=== PATIENT | female | born 1940 | race Hispanic/Latino ===

== ENCOUNTER → 2020-12-14 | Outpatient (CLI) | payer MEDICARE ==
[~2020-12-14] VITALS: Ht 147.3 cm; Wt 81.6 kg
[~2020-12-14] MED LIST: CALC-190 PO; ESCI10TA PO; LEVO137T24 PO; LISI20TA24 PO; REGADENOSON 0.4 MG/5 ML PF SYG IVP SCH; ROSU10TA22 PO; ZOLP5TAB8 PO
== END | disposition home or self-care (01) ==
LOC: SHCH 08:17
PROVIDERS: ATTEND Internal Medicine Cardiovascular Disease
DX: R94.31 Abnormal electrocardiogram [ECG] [EKG] (principal); I73.9 Peripheral vascular disease, unspecified; I10 Essential (primary) hypertension; E78.5 Hyperlipidemia, unspecified; E66.9 Obesity, unspecified; E03.9 Hypothyroidism, unspecified; R06.02 Shortness of breath
CPT/HCPCS: 78452; 93017; 96374; A9500 ×2

== ENCOUNTER → 2022-06-07 | Outpatient (CLI) | payer MEDICARE ==
[~2022-06-07] MED LIST changes: +ASPI-1443 PO; +ATOR20TA65 PO; +CALC-1038 PO; -CALC-190 PO; -ESCI10TA PO; +IOHEXOL-300 50 ML VIAL IV ONE; +ISOS30TA92 PO; -REGADENOSON 0.4 MG/5 ML PF SYG IVP SCH; -ROSU10TA22 PO; +VITAMIN D PO
== END | disposition home or self-care (01) ==
LOC: RAH 09:12
PROVIDERS: ATTEND Internal Medicine Cardiovascular Disease
DX: I25.810 Atherosclerosis of coronary artery bypass graft(s) without angina pectoris (principal); R91.8 Other nonspecific abnormal finding of lung field; I10 Essential (primary) hypertension; M47.815 Spondylosis without myelopathy or radiculopathy, thoracolumbar region; K44.9 Diaphragmatic hernia without obstruction or gangrene; I25.10 Atherosclerotic heart disease of native coronary artery without angina pectoris; Z98.890 Other specified postprocedural states
CPT/HCPCS: 71270; Q9967

== ENCOUNTER → 2022-06-23 | Outpatient (CLI) | payer MEDICARE ==
[~2022-06-23] MED LIST changes: -IOHEXOL-300 50 ML VIAL IV ONE
[2022-06-23 12:41] LABS: CHOLESTEROL 168 mg/dL (<200); HDL CHOLESTEROL 43 mg/dL (35-85); LDL DIRECT 115 mg/dL (0-99); TRIGLYCERIDES 142 mg/dL (30-200)
== END | disposition home or self-care (01) ==
LOC: LAB 11:18
PROVIDERS: ATTEND Internal Medicine Cardiovascular Disease
DX: I10 Essential (primary) hypertension (principal); E78.5 Hyperlipidemia, unspecified
CPT/HCPCS: 36415; 80061

== ENCOUNTER → 2022-12-01 | Outpatient (CLI) | payer MEDICARE | END | disposition home or self-care (01) | LOC: RAH 14:23 | PROVIDERS: ATTEND Family Medicine | DX: Z12.31 Encounter for screening mammogram for malignant neoplasm of breast (principal); R92.1 Mammographic calcification found on diagnostic imaging of breast | CPT/HCPCS: 77067 ==

== ENCOUNTER → 2024-06-17 | Outpatient (CLI) | payer MEDICARE ==
[~2024-06-17] MED LIST changes: +IOHEXOL 350 MG/ML 100ML INFUS..BTL IV ONE; +IOHEXOL-350 75 ML VIAL IV ONE
--- NOTE | 2024-06-17 09:47 | HMCIMG ---
CT CHEST W/WO CONTRAST HISTORY: Atherosclerotic heart disease COMPARISON: 06/07/2022 TECHNIQUE: Multiple sequential axial images of the chest were obtained from the thoracic inlet through upper abdomen. Patient was given 75 cc of Omnipaque through intravenous route. FINDINGS: There is no evidence of pulmonary nodule or parenchymal disease. No pleural effusion or pericardial effusion is seen. There is no evidence of pneumothorax. There are normal size mediastinal and hilar lymph nodes. The heart is not enlarged. Coronary arterial calcifications are seen. A small hiatal hernia is seen. Poststernotomy changes are seen. Degenerative changes of the thoracolumbar spine are present. There is no evidence of adrenal nodule. Dystrophic calcification is seen in the right hepatic lobe. There may be bilateral renal cysts with bilateral renal cortical scarring. Largest cyst is seen in the right kidney measuring 2.3 cm. There is diverticulosis. IMPRESSION: 1. No evidence of pulmonary nodule or effusion is seen. CT was performed with one or more following dose reduction techniques: automated exposure control, adjustment of the mA and kv according to patient's size, or use of a iterative reconstruction technique.
== END | disposition home or self-care (01) ==
LOC: RAH 08:23
PROVIDERS: ATTEND Internal Medicine Cardiovascular Disease
DX: I25.10 Atherosclerotic heart disease of native coronary artery without angina pectoris (principal); K44.9 Diaphragmatic hernia without obstruction or gangrene; M47.815 Spondylosis without myelopathy or radiculopathy, thoracolumbar region
CPT/HCPCS: 71270; Q9967

== ENCOUNTER → 2025-06-08 | Outpatient (CLI) | payer MEDICARE ==
[~2025-06-08] MED LIST changes: -IOHEXOL 350 MG/ML 100ML INFUS..BTL IV ONE; -IOHEXOL-350 75 ML VIAL IV ONE; +ZOLP5TAB16 PO; -ZOLP5TAB8 PO
--- NOTE | 2025-06-08 23:13 | HMCIMG ---
EXAM: ULTRASOUND RENAL Technique: Real-time transabdominal ultrasound of the kidneys and urinary bladder in longitudinal and transverse planes with grayscale imaging and color Doppler where indicated. Contrast: No intravenous contrast administered. Clinical Information: History of acquired renal cysts; insurance note per patient comments. Findings: Right kidney: Measures 9.4 ??? 4.6 ??? 5.7 cm. Multiple cysts are present; the largest two measure 2.6 ??? 2.9 ??? 3.0 cm and 2.9 ??? 2.4 ??? 3.1 cm. No perinephric collection identified. Left kidney: Measures 9.9 ??? 3.4 ??? 5.3 cm. Multiple cysts are present; the largest simple cortical cyst measures 1.8 ??? 2.1 ??? 1.9 cm. A parapelvic cyst measures 2.7 ??? 2.0 ??? 3.6 cm. No perinephric collection identified. Mild left side hydronephrosis. Urinary bladder: Partially distended; wall thickness measures 4 mm. Ureters/collecting systems: No dilatation is visualized on the images provided. Impression: * Bilateral renal cysts, including a left parapelvic cyst (2.7 ??? 2.0 ??? 3.6 cm) and multiple cortical cysts bilaterally; largest right-sided cysts 2.6 ??? 2.9 ??? 3.0 cm and 2.9 ??? 2.4 ??? 3.1 cm; largest left cortical cyst 1.8 ??? 2.1 ??? 1.9 cm. * Mild left side hydronephrosis. * Urinary bladder partially distended with measured wall thickness of 4 mm. /[place]
== END | disposition home or self-care (01) ==
LOC: RAH 10:44
PROVIDERS: ATTEND Internal Medicine Nephrology
DX: N28.1 Cyst of kidney, acquired (principal); N13.30 Unspecified hydronephrosis; N32.89 Other specified disorders of bladder
CPT/HCPCS: 76770

== ENCOUNTER → 2025-06-20 | Outpatient (CLI) | payer MEDICARE ==
--- NOTE | 2025-06-21 00:01 | HMCIMG ---
EXAM: CT Abdomen and Pelvis without Intravenous Contrast CLINICAL HISTORY: Unspecified hydronephrosis. TECHNIQUE: Axial computed tomography images of the abdomen and pelvis without intravenous contrast. Dose reduction technique was used including one or more of the following: automated exposure control, adjustment of mA and kV according to patient size, and/or iterative reconstruction. Total exam DLP is 586. CONTRAST: Without; COMPARISON: Prior renal sonogram dated 06/08/2025. FINDINGS: LUNG BASES: Scattered fibroatelectatic changes are present in the right middle lobe, lingula. No basilar airspace consolidation or pleural effusion. LIVER: There is a 1.4 x 1.5 cm sized calcific nodule in the segment NADIRA of the liver. GALLBLADDER AND BILE DUCTS: The gallbladder is surgically absent. No ductal dilation. PANCREAS: Unremarkable. SPLEEN: Unremarkable. ADRENAL GLANDS: Unremarkable. KIDNEYS, URETERS, AND BLADDER: There are bilateral renal cysts, the largest in the right renal superior pole measuring 3.5 cm. The bilateral renal cysts do not demonstrate any calcification or fat density areas. Per consensus, no follow-up is needed for simple Bosniak type 1 renal cysts, unless the patient has a malignancy history or risk factors. 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 Left sided hydronephrosis which was redemonstrated, compared with the prior renal sonogram is likely to be due to ureteropelvic junction stricture as elucidated better on the present CT scan. The renal cysts are redemonstrated compared with the prior sonography. No nephrolithiasis. No ureteral or bladder calculi. STOMACH AND BOWEL: There is a diverticulum arising from the medial wall of the second part of the duodenum measuring 2.5 cm. There are colonic diverticula, without diverticulitis. A moderate amount of fecal material is present in the colon. No obstruction. No wall thickening. APPENDIX: The appendix is unremarkable, series 2, image 33/95. PERITONEUM: No free fluid. No free air. LYMPH NODES: No lymphadenopathy. REPRODUCTIVE: The uterus is surgically absent. The adnexa are unremarkable. VASCULATURE: The abdominal aorta demonstrates atheromatous calcification without aneurysm or dissection. ABDOMINAL WALL AND SOFT TISSUES: Median sternotomy status. There are coronary arterial calcifications. Mitral and aortic valve annulus calcifications are present. BONES: There are spondylotic changes in the lumbar spine. Minimal dextroscoliosis of the thoracolumbar curvature is present. No fracture or suspicious osseous abnormality. IMPRESSION: Compared with the prior renal sonogram compared with the prior renal sonogram dated June 08, 2025,1. 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 2. Bilateral renal cysts, the largest in the right renal superior pole measuring 3.5 cm, without calcification or fat density areas. 3. Colonic diverticula without evidence of diverticulitis. /[place]
== END | disposition home or self-care (01) ==
LOC: RAH 09:46
PROVIDERS: ATTEND Internal Medicine Nephrology
DX: N28.1 Cyst of kidney, acquired (principal); K57.30 Diverticulosis of large intestine without perforation or abscess without bleeding; M47.816 Spondylosis without myelopathy or radiculopathy, lumbar region; M41.85 Other forms of scoliosis, thoracolumbar region; I25.10 Atherosclerotic heart disease of native coronary artery without angina pectoris; N13.30 Unspecified hydronephrosis; I08.0 Rheumatic disorders of both mitral and aortic valves; J98.11 Atelectasis; Z90.710 Acquired absence of both cervix and uterus; Z98.890 Other specified postprocedural states; Z90.49 Acquired absence of other specified parts of digestive tract
CPT/HCPCS: 74176

== ENCOUNTER → 2025-07-25 | Outpatient (CLI) | payer MEDICARE ==
[~2025-07-25] MED LIST changes: -ASPI-1443 PO; -ATOR20TA65 PO; -CALC-1038 PO; +GADOTERATE MEGLUMINE 10 MMOL/20 ML VIAL IV ONE; -ISOS30TA92 PO; -LEVO137T24 PO; -LISI20TA24 PO; -VITAMIN D PO; -ZOLP5TAB16 PO
--- NOTE | 2025-07-26 02:41 | HMCIMG ---
EXAM: ABDOMEN WITH AND WITHOUT IV CONTRAST CLINICAL HISTORY: Abnormal findings on diagnostic imaging of the liver and biliary tract. TECHNIQUE: Multiplanar and multisequence MR images of the abdomen were obtained before and after IV contrast administration. CONTRAST: Intravenous Clariscan 5 mL COMPARISON: CT abdomen and pelvis without contrast dated 06/20/2025. FINDINGS: LOWER CHEST: No pleural effusion. Median sternotomy wires are present. LIVER: Non-enhancing nodular lesion in segment NADIRA (series 1005, image 42/112), hyperintense on T1 and T2 without diffusion restriction. This corresponds to a calcific nodule noted on the prior CT and is likely a calcified granuloma. No fatty infiltration. GALLBLADDER AND BILIARY TREE: Gallbladder is surgically absent. Common bile duct measures 4 mm with smooth distal tapering. No intra or extrahepatic biliary ductal dilation. PANCREAS: Non-enlarged. No mass or pancreatic duct dilation. No pancreatic ductal dilatation or calculi. SPLEEN: Spleen measures 9.4 cm. Again seen is a splenule measuring 0.7 cm. ADRENAL GLANDS: Non-enlarged, no adrenal gland nodule. KIDNEYS: Normal renal size and position. Again seen are numerous bilateral renal cysts, with the largest lesion in the superior pole of the right kidney measuring approximately 3.4 x 3.3 x 3.4 cm, stable since the prior CT. Cysts are hypointense on T1 and hyperintense on T2, without enhancing septae or nodules. Again seen is moderate prominence of the left renal pelvicalyceal system with abrupt caliber transition at the ureteropelvic junction, suggestive of ureteropelvic junction stricture. No filling defects in the dilated calyces. LYMPH NODES: No enlarged periportal or retroperitoneal lymph nodes. PERITONEUM: No ascites or fluid collection. VESSELS: Aorta is non-dilated. CONTRAST: No abnormal enhancement. No enhancing septae or nodules in the renal cysts. The liver segment NADIRA nodular lesion is non-enhancing. STOMACH AND BOWEL: Small hiatal hernia. Again seen is a diverticulum arising from the medial aspect of the second part of the duodenum measuring 2.6 cm containing air-fluid levels. Colonic diverticulosis was present on the prior CT. IMPRESSION: 1. Calcified granuloma in hepatic segment NADIRA. 2. Moderate prominence of the left renal pelvicalyceal system with abrupt caliber transition at the ureteropelvic junction, suggestive of ureteropelvic junction stricture. No filling defects in the dilated calyces. 3. Numerous bilateral Bosniak class I renal cysts, largest in the superior pole of the right kidney measuring approximately 3.4 x 3.3 x 3.4 cm. No follow up is recommended. 4. Several additional chronic and incidental findings are noted, including duodenal diverticulum, small hiatal hernia, splenule, colonic diverticulosis, status post cholecystectomy, and median sternotomy wires. 5. As compared to the prior CT scan of the abdomen and pelvis dated June 20, 2025, there are no interval changes in the imaging appearance. /[place]
== END | disposition home or self-care (01) ==
LOC: RAH 08:48
PROVIDERS: ATTEND Internal Medicine Gastroenterology
DX: K75.3 Granulomatous hepatitis, not elsewhere classified (principal); N28.1 Cyst of kidney, acquired; R93.2 Abnormal findings on diagnostic imaging of liver and biliary tract; K44.9 Diaphragmatic hernia without obstruction or gangrene; K57.50 Diverticulosis of both small and large intestine without perforation or abscess without bleeding; Z90.49 Acquired absence of other specified parts of digestive tract
CPT/HCPCS: 74183; A9575